=== PATIENT | female | born 1990 | race African-American/Black ===

== ENCOUNTER 2020-11-17 10:36 | Emergency (ER) | payer OTHER ==
[~2020-11-17] VITALS: Ht 177.8 cm; Wt 149.7 kg
[2020-11-17 10:40] VITALS: BP 136/83
--- NOTE | 2020-11-17 11:06 | NUR ---
PATIENT WHEELCHAIR ASSISTED TO BED 2
--- NOTE | 2020-11-17 11:07 | NUR ---
30 Y/O FEMALE BIBA FROM HOME C/O ASTHMA EXACERBATION SINCE YESTERDAY. PT STATES SHE HAS SINUS INFECTION LAST WEEK AND HAS INCREASE IN ASTHMA SINCE. DRY COUGH NOTED. STATES SHE TOOK ALBUTEROL INHALER AT HOME WITH MINIMAL RELIEF AND HAD BREATHING TREATMENT BY EMS IN ROUTE. RR EVEN AND UNLABORED. AWAKE AND ALERT. VSS MEDHX:ASTHMA ALLERGIES: VICODIN
--- NOTE | 2020-11-17 11:48 | NUR ---
PATIENT STATES SHE WILL GO TO [facility] DUE TO WAITING FOR 1 HR TO BE SEEN.
--- NOTE | 2020-11-17 11:50 | NUR ---
PATIENT LEFT WITHOUT BEING SEEN BY COLIN YANG . NO FURTHER CARE PROVIDED FOR PATIENT.
== END 2020-11-17 11:50 | disposition left against medical advice (07) ==
LOC: MED 10:36
DX: J45.909 Unspecified asthma, uncomplicated (principal); Z53.21 Procedure and treatment not carried out due to patient leaving prior to being seen by health care provider